=== PATIENT | female | born 1935 | race Caucasian/White ===

== ENCOUNTER 2020-07-06 14:26 | Outpatient (REF) | payer MEDICARE, SELFPAY ==
--- NOTE | ~2020-07-06 | XR_ITS ---
EXAMINATION: XR CHEST CLINICAL INFORMATION: Dyspnea COMPARISON: None TECHNIQUE: 2 views of the chest were obtained. FINDINGS: The cardiac and mediastinal contours are normal. The lungs are clear. There is no pleural effusion or pneumothorax. There are degenerative changes of the spine. XR/XR chest 2V IMPRESSION: Unremarkable examination.
[2020-07-06 15:47] LABS: MANUAL DIFF FLAG NO
[2020-07-06 15:51] LABS: Basophils Percent Auto 0.5 % (0-2); Eosinophils Absolute Auto 0.3 X10*3/uL (0.0-0.4); Eosinophils Percent Auto 3.4 % (0-4); Hematocrit 43.2 % (37-47); Hemoglobin 14.9 g/dl (12.0-16.0); Imm Gran Abs Auto 0.05 X10*3/uL (0.00-0.03); Imm Gran Pct Auto 0.6 % (0.0-0.4); Lymphocytes Absolute Auto 2.1 X10*3/uL (1.2-4.9); Lymphocytes Percent Auto 24.4 % (20-40); Mean Corpuscular HGB Conc 34.5 g/dl (31.0-35.0); Mean Corpuscular Hemoglobin 31.8 pg (27.0-33.0); Mean Corpuscular Volume 92.3 fL (80-98); Mean Platelet Volume 9.3 fL (9.4-12.3); Monocytes Absolute Auto 0.5 X10*3/uL (0.1-1.2); Monocytes Percent Auto 6.1 % (2-11); Neutrophils Absolute Auto 5.5 X10*3/uL (2.0-8.3); Platelet Count 259 X10*3/uL (160-400); Red Blood Count 4.68 X10*6/uL (4.20-5.50); Red Cell Distribution Width 12.9 % (11.0-16.0); White Blood Count 8.5 X10*3/uL (4.8-10.8)
== END 2020-07-06 14:27 | disposition home or self-care (01) ==
LOC: HO.LAB 14:26
PROVIDERS: PCP Internal Medicine; Visit Provider Internal Medicine Pulmonary Disease
DX: R06.00 Dyspnea, unspecified (principal); J44.9 Chronic obstructive pulmonary disease, unspecified; Z79.899 Other long term (current) drug therapy; Z87.891 Personal history of nicotine dependence
CPT/HCPCS: 36415; 71046; 85025; 99202; 99212

== ENCOUNTER 2020-08-02 15:00 | Outpatient (REF) | payer MEDICARE, SELFPAY ==
--- NOTE | 2020-08-02 16:21 | PFT_ITS ---
INDICATION: Dyspnea. SPIROMETRY: The FEV1 to FVC 80% with an FEV1 of 1.94 L, which is 111% predicted and an FVC of 2.44 L, which is 102% predicted. No significant response to bronchodilators noted. Maximum voluntary ventilation 111% predicted. LUNG VOLUMES: Total lung capacity 99% predicted. DIFFUSION CAPACITY: DLCO 60% predicted. COMPARISONS: None available. INTERPRETATION: No obstructive nor restrictive ventilatory defects identified. No significant response to bronchodilators noted. Normal maximum voluntary ventilation. Normal lung volumes. The patient however has an isolated moderate diffusion impairment. Therefore, occult interstitial lung conditions and/or pulmonary vascular condition should be considered. Clinical correlation warranted. MD SHEILA Aragon/CHANTEL / [phone]
== END 2020-08-02 15:01 | disposition home or self-care (01) ==
LOC: HO.RESP 15:00
PROVIDERS: Visit Provider Internal Medicine Pulmonary Disease
DX: R06.00 Dyspnea, unspecified (principal)
CPT/HCPCS: 94060; 94727; 94729; 99212

== ENCOUNTER → 2020-08-17 13:49 | Outpatient (REF) | payer MEDICARE, SELFPAY ==
--- NOTE | 2020-08-17 13:55 | CA_ITS ---
Transthoracic Echocardiogram Patient (Last, First, Middle): Tawana Alarcon, Gender: Female Date of : 1935 Age: 85 Procedure Date: 08/17/2020 Procedure Type: Transthoracic Echocardiogram Location: OP Height: 160.02 cm Weight: 78.93 kg BSA: 1.82 m2 Heart Rate: bpm BP: 174 / 71 mmHg Tool Lathe Operator: ANDREW Avila MD: Arash Merritt MD Crm Administrator: Dakota Rivas MD Symptoms: R06.00 - Dyspnea, unspecified Study Quality: Good ECG Rhythm: Sinus Conclusions: - 1. Normal LV systolic function with impaired relaxation filling pattern 2. Normal cardiac valvular Doppler 3. Normal RV systolic pressure 4. No pericardial effusion Findings Left Ventricle Normal left ventricular size, thickness, and systolic function. The visually estimated ejection fraction is between 60-65%. Spectral Doppler is indicative of an impaired relaxation filling pattern. E/E prime ratio is between 8 and 15 consistent with indeterminate filling pressures. Right Ventricle Normal right ventricular cavity size and systolic function. Atria The left atrium is normal in size. There is lipomatous hypertrophy of the interatrial septum. There is no evidence of interatrial shunt. The right atrium is normal in size. Aortic Valve The aortic valve was not well visualized. There is mild calcification of the aortic valve. There is no aortic valve stenosis. There is no aortic valve regurgitation. Mitral Valve There is mild anterior and moderate posterior mitral leaflet thickening. There is moderate mitral annular calcification. There is trace mitral valve regurgitation. There is no mitral valve stenosis. Pulmonic Valve The pulmonic valve is likely normal. There is trace pulmonic valve regurgitation. Tricuspid Valve Normal tricuspid valve structure. There is mild tricuspid valve regurgitation. The right ventricular systolic pressure is normal. The right ventricular systolic pressure is 32 mmHg. Normal right atrial pressure. There is no evidence of pulmonary hypertension. Great Vessels All visible segments of the aorta are normal in size. The pulmonary artery was not well visualized. Venous The inferior vena cava is normal in size and collapses greater than 50% with inspiration. Pericardium/Pleural There is no evidence of pericardial effusion. Prior Study Comparison No prior study available for comparison. Measurements M-Mode Liner Measurements Normals - Women/Men AOV Cusps: 1.30 1.5-2.6 cm/m2 2D Linear Measurements IVSd: 0.94 0.6-0.9/0.6-1.0 cm LVIDd: 5.19 3.9-5.3/4.2-5.9 cm LVIDd Index: 2.85 2.4-3.2/2.2-3.1 cm/m2 LVIDs: 2.72 2.0-3.6 cm LVPWd: 0.94 0.7-1.1 cm Ao Root: 3.00 2.1-3.5 cm LA Diam: 3.40 2.7-3.8/3.0-4.0 cm LAIDs Index: 1.87 1.5-2.3 cm/m2 LV Mass: 221.52 67-162/88-224 g LV Mass Index: 121.71 43-95/49-115 g/m2 LVOT Diam: 1.90 3.0+(-)1.3 cm 2D Systolic Function EF 4C: 58.70 >55% EF 2C: 61.80 >55% EF BiP: 60.80 >55% Mitral Valve MV Pk E: 0.99 MV PK A: 1.08 MV Decel Time: 239.00 E/A: 0.90 E'Lateral: 7.62 E'Medial: 8.59 E/E' Med: 11.60 E/E' Lat: 13.00 PHT: 70.00 MVA PHT: 3.14 Decel [place]: 4.15 Aortic Valve AoV Pk Good: 1.49 AoV Pk Grad: 9.00 LVOT LVOT Pk Good: 0.89 LVOT Mn Good: 0.58 LVOT VTI: 0.23 LVOT Pk Grad: 3.00 LVOT Mn Grad: 2.00 LVOT Diam: 1.90 LVOT Area: 2.84 Diastolic Function MV Pk E: 0.99 MV Pk A: 1.08 E/A: 0.90 E'Medial: 8.59 E/E' Med: 11.60 E' Laterial: 7.62 E/E' Lat: 13.00 Tricuspid Valve TR Pk Good: 2.67 TR Pk Grad: 29.00 RA Press: 3.00 RVSP: 32.00 Great Vessels Aorta Ao Root-2D: 3.00 2.0-3.7 cm Ao Asc: 3.00 2.1-3.4 cm Pulmonary Valve PV Pk Good: 1.37 Peak PV Grad: 8.00 Updated in Other Vendor System with Status of Final Dakota Rivas MD electronically signed on 08/18/2020 2:42:59 PM with status of Final
== END ==
LOC: HO.CARD 13:49
PROVIDERS: Visit Provider Internal Medicine Pulmonary Disease
DX: R06.00 Dyspnea, unspecified (principal)
CPT/HCPCS: 93306

== ENCOUNTER → 2020-09-06 14:27 | Outpatient (BNVA) | payer MEDICARE, SELFPAY | PROVIDERS: PCP Internal Medicine; Visit Provider Internal Medicine Pulmonary Disease | DX: J44.9 Chronic obstructive pulmonary disease, unspecified (principal); R06.00 Dyspnea, unspecified | CPT/HCPCS: 99212 ==

== ENCOUNTER → 2020-12-05 14:52 | Outpatient (BNVA) | payer MEDICARE, SELFPAY | PROVIDERS: PCP Internal Medicine; Visit Provider Internal Medicine Pulmonary Disease | DX: J44.9 Chronic obstructive pulmonary disease, unspecified (principal); R06.00 Dyspnea, unspecified; Z87.891 Personal history of nicotine dependence | CPT/HCPCS: 99212 ==

== ENCOUNTER → 2021-03-12 15:59 | Outpatient (BNVA) | payer MEDICARE, SELFPAY | PROVIDERS: PCP Internal Medicine; Visit Provider Internal Medicine Pulmonary Disease | DX: J44.9 Chronic obstructive pulmonary disease, unspecified (principal) | CPT/HCPCS: 99212 ==

== ENCOUNTER → 2021-09-24 14:54 | Outpatient (BNVA) | payer MEDICARE, SELFPAY | PROVIDERS: PCP Internal Medicine; Visit Provider Internal Medicine Pulmonary Disease | DX: J44.9 Chronic obstructive pulmonary disease, unspecified (principal); R06.00 Dyspnea, unspecified; Z91.09 Other allergy status, other than to drugs and biological substances; Z79.899 Other long term (current) drug therapy | CPT/HCPCS: 99212 ==

== ENCOUNTER → 2022-01-27 15:35 | Outpatient (BNVA) | payer MEDICARE, SELFPAY | PROVIDERS: PCP Internal Medicine; Visit Provider Internal Medicine Pulmonary Disease | DX: J44.9 Chronic obstructive pulmonary disease, unspecified (principal); Z91.09 Other allergy status, other than to drugs and biological substances; Z87.891 Personal history of nicotine dependence; Z79.899 Other long term (current) drug therapy | CPT/HCPCS: 99212 ==

== ENCOUNTER → 2022-03-25 12:59 | Outpatient (BNVA) | payer MEDICARE, SELFPAY | PROVIDERS: PCP Internal Medicine; Visit Provider Internal Medicine Pulmonary Disease | DX: J44.9 Chronic obstructive pulmonary disease, unspecified (principal); Z91.09 Other allergy status, other than to drugs and biological substances | CPT/HCPCS: 99212 ==

== ENCOUNTER → 2022-08-05 14:43 | Outpatient (BNVA) | payer MEDICARE, SELFPAY | PROVIDERS: PCP Internal Medicine; Visit Provider Internal Medicine Pulmonary Disease | DX: J44.9 Chronic obstructive pulmonary disease, unspecified (principal); J30.9 Allergic rhinitis, unspecified; R06.00 Dyspnea, unspecified | CPT/HCPCS: 99212 ==

== ENCOUNTER 2023-02-13 15:28 | Outpatient (AMB) | payer MEDICARE, SELFPAY ==
[2023-02-13 15:29] VITALS: BP 128/62; PULSE 59; O2SAT 96; BMI 29.5
--- NOTE | 2023-02-13 15:29 | A.OFFVIS_ITS ---
Intake Vital Signs 02/13/23 15:29 Height 5 ft 3 in Weight 166 lb 7.184 oz BMI 29.5 BP 128/62 Blood Pressure Location Rt brachial Position Sitting Pulse 59 Pulse Source Doppler Pulse Oximetry (%) 96 Oxygen Delivery Method Room Air Intake Visit Reasons: COPD Allergies No Known Allergies Allergy (Verified 02/13/23 15:35) HPI COPD HPI Details 87-year-old lady, former 15 pack-year sm oker, quit over 50 years prior now followed for asthma/COPD overlap syndrome. ?She continues to use Symbicort to control her underlying dyspnea.? Her lower extremity edema is well controlled on furosemide 20 mg daily that she takes as needed.? Her Flonase was switched to nasal ipratropium and now her allergic rhinitis is much better control. She denies recent exacerbations. Review of Systems Const Denies daytime sleepiness, Denies excessive sweating, Denies fatigue, Denies fever(s), Denies lethargy, Denies malaise, Denies night sweats, Denies snoring and Denies weight loss Eyes Denies blurry vision and Denies itchy eyes ENT Denies nasal congestion, Denies post nasal drip, Denies sinus pain, Denies sinus pressure and Denies other ( Thrush) Card Denies chest pain, Denies pedal edema, Denies dyspnea, Denies orthopnea and Denies paroxysmal nocturnal dyspnea Resp Denies cough, Denies hemoptysis, Denies excessive phlegm production, Denies dyspnea, Denies snoring and Denies wheezing GI Denies abdominal pain and Denies heartburn Musc Denies myalgias, Denies arthralgias and Denies joint swelling Skin/Breast Denies rash Neuro Denies memory loss and Denies seizure-like activity Psych Denies abnormal sleep pattern, Denies anxiety and Denies memory loss Endo Denies excessive sweating, Denies fatigue and Denies heat intolerance Alcides/Lymph Denies easy bruising Aller/Immun Denies itchy eyes, Denies seasonal rhinorrhea and Denies wheezing Physical Exam Vital Signs: Last Vital Signs Pulse 59 02/13/23 15:29 BP 128/62 02/13/23 15:29 Pulse Ox 96 02/13/23 15:29 Oxygen Delivery Method Room Air 02/13/23 15:29 BMI result Body Mass Index 29.5 Const General: no acute distress and alert Nutritional Appearance: not obese Orientation/consciousness: Other orientation findings ( oriented) HEENT Head: Yes atraumatic Eyes General: appearance normal, both eyes and all related structures Sclerae: sclerae normal EOM: EOMs intact bilaterally Neck Neck: Yes supple Lymphatic: no lymphadenopathy noted Resp Effort & Inspection: normal respiratory effort and no use of accessory muscles Auscultation: clear to auscultation bilaterally Cardio Rate: regular rate Rhythm: regular rhythm Heart sounds: no gallops, no murmurs and no rubs Skin General skin exam: other ( warm) Extrem General: No clubbing, No cyanosis and Yes edema (Trace bilateral) Assessment & Plan Assessment & Plan (1) Asthma-COPD overlap syndrome: Code(s): J44.9 - Chronic obstructive pulmonary disease, unspecified Plan: Well controlled on Symbicort, duo nebs, and albuterol MDI. Continue current regimen. (2) Allergic rhinitis: Code(s): J30.9 - Allergic rhinitis, unspecified Plan: Significantly improved control on nasal ipratropium. Continue current regimen. (3) Dyspnea on exertion: Code(s): R06.00 - Dyspnea, unspecified Plan: Lower extremity edema/dyspnea on exertion with reasonable control on Lasix 20 mg daily. Continue current regimen. Coding Level of Care Code Est Pt Level 4 (97089) Diagnoses Asthma-COPD overlap syndrome J44.9 Allergic rhinitis J30.9 Dyspnea on exertion R06.00
== END 2023-02-13 15:47 | disposition home or self-care (01) ==
PROVIDERS: PCP Internal Medicine; Visit Provider Internal Medicine Pulmonary Disease
DX: J44.9 Chronic obstructive pulmonary disease, unspecified (principal); J30.9 Allergic rhinitis, unspecified; R06.00 Dyspnea, unspecified
CPT/HCPCS: 99214

== ENCOUNTER → 2023-02-13 15:28 | Outpatient (BNVA) | payer MEDICARE, SELFPAY | PROVIDERS: PCP Internal Medicine; Visit Provider Internal Medicine Pulmonary Disease | DX: J44.9 Chronic obstructive pulmonary disease, unspecified (principal); J30.9 Allergic rhinitis, unspecified; R06.00 Dyspnea, unspecified; Z79.899 Other long term (current) drug therapy | CPT/HCPCS: 99212 ==

== ENCOUNTER 2023-08-11 15:13 | Outpatient (AMB) | payer MEDICARE, SELFPAY ==
[2023-08-11 15:17] VITALS: BP 122/64; PULSE 66; O2SAT 95; BMI 29.9
--- NOTE | 2023-08-11 15:17 | A.OFFVIS_ITS ---
Intake Vital Signs 08/11/23 15:17 Height 5 ft 3 in Weight 169 lb BMI 29.9 BP 122/64 Blood Pressure Location Rt brachial Position Sitting Pulse 66 Pulse Source Doppler Pulse Oximetry (%) 95 Oxygen Delivery Method Room Air Intake Visit Reasons: COPD Allergies No Known Allergies Allergy (Verified 08/11/23 15:27) HPI COPD HPI Details 88-year-old lady, former 15 pack-year sm bryan, quit over 50 years prior now followed for asthma/COPD overlap syndrome. ?She continues to use Symbicort to control her underlying dyspnea.? Her lower extremity edema is well controlled on furosemide 20 mg daily that she takes as needed.? Her allergic rhinitis as well controlled on nasal ipratropium. She denies recent exacerbations. Review of Systems Const Denies daytime sleepiness, Denies excessive sweating, Denies fatigue, Denies fever(s), Denies lethargy, Denies malaise, Denies night sweats, Denies snoring and Denies weight loss Eyes Denies blurry vision and Denies itchy eyes ENT Denies nasal congestion, Denies post nasal drip, Denies sinus pain, Denies sinus pressure and Denies other ( Thrush) Card Denies chest pain, Denies pedal edema, Denies dyspnea, Denies orthopnea and Denies paroxysmal nocturnal dyspnea Resp Denies cough, Denies hemoptysis, Denies excessive phlegm production, Denies dyspnea, Denies snoring and Denies wheezing GI Denies abdominal pain and Denies heartburn Musc Denies myalgias, Denies arthralgias and Denies joint swelling Skin/Breast Denies rash Neuro Denies memory loss and Denies seizure-like activity Psych Denies abnormal sleep pattern, Denies anxiety and Denies memory loss Endo Denies excessive sweating, Denies fatigue and Denies heat intolerance Alcides/Lymph Denies easy bruising Aller/Immun Denies itchy eyes, Denies seasonal rhinorrhea and Denies wheezing Physical Exam Vital Signs: Last Vital Signs Pulse 66 08/11/23 15:17 BP 122/64 08/11/23 15:17 Pulse Ox 95 08/11/23 15:17 Oxygen Delivery Method Room Air 08/11/23 15:17 BMI result Body Mass Index 29.9 Const General: no acute distress and alert Nutritional Appearance: not obese Orientation/consciousness: Other orientation findings ( oriented) HEENT Head: Yes atraumatic Eyes General: appearance normal, both eyes and all related structures Sclerae: sclerae normal EOM: EOMs intact bilaterally Neck Neck: Yes supple Lymphatic: no lymphadenopathy noted Resp Effort & Inspection: normal respiratory effort and no use of accessory muscles Auscultation: clear to auscultation bilaterally Cardio Rate: regular rate Rhythm: regular rhythm Heart sounds: no gallops, no murmurs and no rubs Skin General skin exam: other ( warm) Extrem General: No clubbing, No cyanosis and No edema Assessment & Plan Assessment & Plan (1) Asthma-COPD overlap syndrome: Code(s): J44.9 - Chronic obstructive pulmonary disease, unspecified Plan: Well controlled on Symbicort and albuterol MDI. Continue current regimen. (2) Allergic rhinitis: Code(s): J30.9 - Allergic rhinitis, unspecified Plan: Well controlled on nasal ipratropium. Continue nasal ipratropium. (3) Dyspnea on exertion: Code(s): R06.00 - Dyspnea, unspecified Plan: Lower extremity edema and dyspnea on exertion well controlled on Lasix 20 mg daily. Continue current regimen. Medications: Refilled ipratropium bromide administer into each nostril 2 sprays intranasal TID-QID PRN 15 mL 6RF allergy symptoms 30 days albuterol sulfate 90 mcg/actuation 2 puffs inhalation Q4-6H PRN 1 ea 3RF shortness of breath or wheezing 30 days budesonide-formoterol 160-4.5 mcg/actuation 2 puffs PO BID 33 grams 6RF Coding Level of Care Code Est Pt Level 4 (97434) Diagnoses Asthma-COPD overlap syndrome J44.9 Allergic rhinitis J30.9 Dyspnea on exertion R06.00
== END 2023-08-11 15:49 | disposition home or self-care (01) ==
PROVIDERS: PCP Internal Medicine; Visit Provider Internal Medicine Pulmonary Disease
DX: J44.9 Chronic obstructive pulmonary disease, unspecified (principal); J30.9 Allergic rhinitis, unspecified; R06.00 Dyspnea, unspecified
CPT/HCPCS: 99214

== ENCOUNTER → 2023-08-11 15:13 | Outpatient (BNVA) | payer MEDICARE, SELFPAY | PROVIDERS: PCP Internal Medicine; Visit Provider Internal Medicine Pulmonary Disease | DX: J44.9 Chronic obstructive pulmonary disease, unspecified (principal); J30.9 Allergic rhinitis, unspecified; R06.00 Dyspnea, unspecified | CPT/HCPCS: 99212 ==

== ENCOUNTER 2024-02-24 14:44 | Outpatient (AMB) | payer MEDICARE, SELFPAY ==
[2024-02-24 14:47] VITALS: BP 118/58; PULSE 70; O2SAT 96; BMI 28.0
--- NOTE | 2024-02-24 14:47 | MHC.OFFVIS ---
Vital Signs 02/24/24 14:47 Height 5 ft 3 in Weight 158 lb BMI 28.0 BP 118/58 L Blood Pressure Location Rt brachial Position Sitting Pulse 70 Pulse Source Doppler Pulse Oximetry (%) 96 Oxygen Delivery Method Room Air Intake Visit Reasons: copd Allergies No Known Allergies Allergy (Verified 08/11/23 15:27) HPI HPI copd: Details: 88-year-old lady, former 15 pack-year smoker, quit over 50 years prior now followed for asthma/COPD overlap syndrome. ?She continues to use Symbicort to control her underlying dyspnea.? Her lower extremity edema is well controlled on furosemide 20 mg daily that she takes as needed.? Her allergic rhinitis as well controlled on nasal ipratropium. She denies recent exacerbations. Review of Systems Const Denies daytime sleepiness, Denies excessive sweating, Denies fatigue, Denies fever(s), Denies lethargy, Denies malaise, Denies night sweats, Denies snoring and Denies weight loss Eyes Denies blurry vision and Denies itchy eyes ENT Denies nasal congestion, Denies post nasal drip, Denies sinus pain, Denies sinus pressure and Denies other ( Thrush) Card Denies chest pain, Denies pedal edema, Denies dyspnea, Denies orthopnea and Denies paroxysmal nocturnal dyspnea Resp Denies cough, Denies hemoptysis, Denies excessive phlegm production, Denies dyspnea, Denies snoring and Denies wheezing GI Denies abdominal pain and Denies heartburn Musc Denies myalgias, Denies arthralgias and Denies joint swelling Skin/Breast Denies rash Neuro Denies memory loss and Denies seizure-like activity Psych Denies abnormal sleep pattern, Denies anxiety and Denies memory loss Endo Denies excessive sweating, Denies fatigue and Denies heat intolerance Alcides/Lymph Denies easy bruising Aller/Immun Denies itchy eyes, Denies seasonal rhinorrhea and Denies wheezing Physical Exam Vital Signs: Last Vital Signs Pulse 70 02/24/24 14:47 BP 118/58 L 02/24/24 14:47 Pulse Ox 96 02/24/24 14:47 Oxygen Delivery Method Room Air 02/24/24 14:47 BMI result Body Mass Index 28.0 Const General: no acute distress and alert Nutritional Appearance: not obese Orientation/consciousness: Other orientation findings ( oriented) HEENT Head: Yes atraumatic Eyes General: appearance normal, both eyes and all related structures Sclerae: sclerae normal EOM: EOMs intact bilaterally Neck Neck: Yes supple Lymphatic: no lymphadenopathy noted Resp Effort & Inspection: normal respiratory effort and no use of accessory muscles Auscultation: clear to auscultation bilaterally Cardio Rate: regular rate Rhythm: regular rhythm Heart sounds: no gallops, no murmurs and no rubs Skin General skin exam: other ( warm) Extrem General: No clubbing, No cyanosis and Yes edema ( Trace bilateral) Assessment & Plan Assessment & Plan (1) Asthma-COPD overlap syndrome: Code(s): J44.9 - Chronic obstructive pulmonary disease, unspecified Category: Medical Plan: well controlled on current regimen of Symbicort, duo nebs, and albuterol MDI. Continue current regimen. (2) Environmental allergies: Code(s): Z91.09 - Other allergy status, other than to drugs and biological substances Category: Medical Plan: Well controlled on Singulair and nasal ipratropium. Continue current regimen. (3) Dyspnea on exertion: Code(s): R06.00 - Dyspnea, unspecified Category: Medical Plan: Orthopnea and lower extremity edema with improved control on Lasix 20 mg daily when patient takes it. Patient has been encouraged to be more consistent with her diuretic. Coding Level of Care Code Est Pt Level 4 (31831) Diagnoses Asthma-COPD overlap syndrome J44.9 Environmental allergies Z91.09 Dyspnea on exertion R06.00
== END 2024-02-24 15:07 | disposition home or self-care (01) ==
PROVIDERS: PCP Internal Medicine; Visit Provider Internal Medicine Pulmonary Disease
DX: J44.9 Chronic obstructive pulmonary disease, unspecified (principal); Z91.09 Other allergy status, other than to drugs and biological substances; R06.00 Dyspnea, unspecified
CPT/HCPCS: 99214

== ENCOUNTER → 2024-02-24 14:44 | Outpatient (BNVA) | payer MEDICARE, SELFPAY | PROVIDERS: PCP Internal Medicine; Visit Provider Internal Medicine Pulmonary Disease | DX: J44.9 Chronic obstructive pulmonary disease, unspecified (principal); R06.00 Dyspnea, unspecified; Z91.09 Other allergy status, other than to drugs and biological substances | CPT/HCPCS: 99212 ==

== ENCOUNTER 2024-08-24 14:53 | Outpatient (AMB) | payer MEDICARE, SELFPAY ==
--- NOTE | 2024-08-24 15:01 | MHC.OFFVIS ---
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 ?She continues to use Symbicort, duo nebs, and albuterol MDI to control her underlying dyspnea.? Her lower extremity edema is well controlled on furosemide 20 mg daily that she takes as needed.? Her allergic rhinitis as well controlled on nasal ipratropium. She denies recent exacerbations. [facility] Social History (Updated 08/24/24 @ 15:08 by Ammy Conroy [facility]) Patient Tobacco Use Status: Former Tobacco user Review of Systems Const Denies daytime sleepiness, Denies excessive sweating, Denies fatigue, Denies fever(s), Denies lethargy, Denies malaise, Denies night sweats, Denies snoring and Denies weight loss Eyes Denies blurry vision and Denies itchy eyes ENT Denies nasal congestion, Denies post nasal drip, Denies sinus pain, Denies sinus pressure and Denies other ( Thrush) Card Denies chest pain, Denies pedal edema, Denies dyspnea, Denies orthopnea and Denies paroxysmal nocturnal dyspnea Resp Denies cough, Denies hemoptysis, Denies excessive phlegm production, Denies dyspnea, Denies snoring and Denies wheezing GI Denies abdominal pain and Denies heartburn Musc Denies myalgias, Denies arthralgias and Denies joint swelling Skin/Breast Denies rash Neuro Denies memory loss and Denies seizure-like activity Psych Denies abnormal sleep pattern, Denies anxiety and Denies memory loss Endo Denies excessive sweating, Denies fatigue and Denies heat intolerance Alcides/Lymph Denies easy bruising Aller/Immun Denies itchy eyes, Denies seasonal rhinorrhea and Denies wheezing Physical Exam Vital Signs: Last Vital Signs Pulse 65 08/24/24 15:02 BP 110/48 L 08/24/24 15:02 Pulse Ox 96 08/24/24 15:02 Oxygen Delivery Method Room Air 08/24/24 15:02 BMI result Body Mass Index 28.7 Const General: no acute distress and alert Nutritional Appearance: not obese Orientation/consciousness: Other orientation findings ( oriented) HEENT Head: Yes atraumatic Eyes General: appearance normal, both eyes and all related structures Sclerae: sclerae normal EOM: EOMs intact bilaterally Neck Neck: Yes supple Lymphatic: no lymphadenopathy noted Resp Effort & Inspection: normal respiratory effort and no use of accessory muscles Auscultation: clear to auscultation bilaterally Cardio Rate: regular rate Rhythm: regular rhythm Heart sounds: no gallops, no murmurs and no rubs Skin General skin exam: other ( warm) Extrem General: No clubbing, No cyanosis and No edema Assessment & Plan Assessment & Plan (1) Asthma-COPD overlap syndrome: Code(s): J44.9 - Chronic obstructive pulmonary disease, unspecified Category: Medical Plan: Well controlled on Symbicort, duo nebs, and albuterol MDI. Continue current regimen. (2) Allergic rhinitis: Code(s): J30.9 - Allergic rhinitis, unspecified Category: Medical Plan: Improved control on nasal ipratropium continue current regimen. (3) Dyspnea on exertion: Code(s): R06.00 - Dyspnea, unspecified Category: Medical Plan: Orthopnea/lower extremity edema with improved control on Lasix 20 mg daily as needed. Continue current regimen. 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 Will refer to Cardiology. Orders: Referrals Cardiology Referral I50.40 - Unspecified combined systolic (congestive) and diastolic (congestive) heart failure Medications: Refilled ipratropium bromide administer into each nostril 2 sprays intranasal TID-QID PRN 15 mL 6RF allergy symptoms 30 days Coding Level of Care Code Est Pt Level 4 (90415) Complex EM visit Add On G2211 Diagnoses Asthma-COPD overlap syndrome J44.9 Allergic rhinitis J30.9 Dyspnea on exertion R06.00 Combined systolic and diastolic heart failure I50.40
[2024-08-24 15:02] VITALS: BP 110/48; PULSE 65; O2SAT 96; BMI 28.7
--- OUTSIDE RECORDS SUMMARY | 2024-08-24 17:52 | XMS_ITS | Clinical Summary ---
Author Organization [facility] Facility Address [address] [address] Care Team Providers Care Field Irrigation Worker Name Role Phone Anya Velasquez MD Primary Care Provider [phone] Allergies Active Allergy Reactions Criticality Noted Date Comments Atorvastatin 06/12/2021 Simvastatin 07/20/2009 Medications albuterol HFA (ProAir HFA) 108 (90 Base) MCG/ACT inhaler every 4 (four) hours 9 Active amLODIPine (NORVASC) 5 MG tablet amlodipine 5 mg tablet 9 Active atorvastatin (LIPITOR) 40 MG tablet atorvastatin 40 mg tablet 9 Active cholecalcifero l (VITAMIN D-3 SUPER STRENGTH) 50 MCG (2000 UT) tablet Vitamin D3 50 mcg (2,000 unit) tablet Take by oral route. Active coenzyme Q-10 100 MG capsule Take by mouth A ctive Diclofenac Sodium 1 % gel Place 4 g on the skin 8 Active doxycycline (VIBRAMYCIN) 100 MG capsule 1 capsule 2 (two) times a day Active fluticasone-sa lmeterol (ADVAIR DISKUS) 250-50 MCG/DOSE diskus inhaler INHALE 1 PUFF BY MOUTH TWICE DAILY 1 Active furosemide (LASIX) 20 MG tablet furosemide 20 mg tablet 9 Active insulin glargine (Lantus SoloStar) 100 UNIT/ML injection Lantus Solostar U-100 Insulin 100 unit/mL (3 mL) subcutaneous pen Active metoprolol succinate XL (TOPROL-XL) 25 MG 24 hr tablet metoprolol succinate ER 25 mg tablet,extended release 24 hr 9 Active omega-3 (FISH OIL) 1000 MG capsule Take by mouth Active BIOTIN PO Take 1 tablet by mouth 1 (one) time each day Active aspirin (ST ONUR) 81 MG EC tablet Take 81 mg by mouth 1 (one) time each day Active MULTIPLE VITAMINS-RETAIL POS SPECIALIST ALS PO Take 1 tablet by mouth 1 (one) time each day Active montelukast (SINGULAIR) 10 MG tablet Take 10 mg by mouth every night Active budesonide-for moterol (SYMBICORT) 160-4.5 MCG/ACT inhaler Inhale 2 puffs 2 (two) times a day 1 Active levothyroxine (SYNTHROID, LEVOTHROID) 88 MCG tablet Take 88 mcg by mouth 1 (one) time each day 1 Active ketoconazole (NIZORAL) 2 % cream APPLY A THIN LAYER OF CREAM UNDER BREASTS NEEDED FOR FLARES FOR UP TO 2 WEEKS. MAY MIX WITH DESONIDE. 2 Active desonide (DESOWEN) 0.05 % cream APPLY CREAM TOPICALLY TO AFFECTED AREAS UNDER BREASTS AND BEHIND LEFT EAR TWICE DAILY FOR UP TO 14 DAYS AT A TIME. 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 Reports good consistency taking rx appropriately. Would monitor TFTs q6-12 months & prn symptoms of thyroid dysfunction or more than 10# weight change. Long-term current use of drug therapy 02/07/2023 Ankle joint pain 06/12/2021 Cervical radiculopathy 06/12/2021 Insomnia 06/12/2021 Toxic multinodular goiter 06/12/2021 Vitamin D deficiency 06/12/2021 Allergic conjunctivitis 12/21/2018 Allergic rhinitis 12/21/2018 Obese 12/21/2018 Seasonal allergy 12/21/2018 Stage 3 chronic kidney disease 01/01/2018 Osteopenia 01/01/2018 Spinal stenosis 01/01/2018 Arthritis 10/07/2017 Chronic bronchitis 10/07/2017 Asthma-chronic obstructive p ulmonary disease overlap syndrome 06/24/2017 Congestive heart failure 06/24/2017 Hypertension 06/24/2017 Hypothyroidism 06/24/2017 Overview (12/10/2022): S/p thyroidectomy S/p thyroidectomy S/p thyroidectomy S/p thyroidectomy S/p thyroidectomy Last Assessment & Plan: Patient is consistent with taking her levothyroxine. Her recent prescription was filled by her PCP. Labs ordered today to do prior to next visit to determine if any medication adjustments are needed Type 2 diabetes mellitus 06/24/2017 Overview (12/10/2022): Last Assessment & Plan: Foot exam preformed and documented by Dr Blanca Estrada MD. Shoe prescription printed and given to the patient at the of the visit Last Assessment & Plan: Control is good based upon the patient's limited SMBG readings and her recent A1C of 7.2%. No frequent or severe hypoglycemia. Will maintain her regimen. Continue to work on eating healthy and being active. To call with any issues managing her glucose levels. Up to date with ophtho. Foot and nail care good. Foot exam today preformed and documented by Dr Blanca Estrada MD. Labs ordered today to be done prior to next visit Atherosclerosis of aorta 01/01/2017 Hyperlipidemia 09/25/2016 Encounters Date Type Department Care Team Description 06/24/2024 Orders Only [facility] [address] [place] [id number] Adolfo Caraballo MD Stage 3 chronic kidney disease, not otherwise specified (HCC) from Last 3 Months Immunizations Name Administration Dates Next Due Influenza Whole 02/08/2020 Influenza, Unspecified 03/21/2019 Pneumococcal Polysaccharide 03/07/2015 Tdap 04/13/2012 Zoster 07/15/2019,10/13/2018 Family History Medical History Relation Comments Diabetes Father Cancer Mother Relation Status Comments Father Mother Social History Tobacco Use Types Packs/Day Years Used Date Smoking Tobacco: Former Cigarettes Smokeless Tobacco: Never Tobacco Cessation:Counseling Given: No Alcohol Use Standard Drinks/Week Comments Never 0 (1 standard drink = 0.6 oz pur e alcohol) Comments Unknown Sex and Gender Information Value Date Recorded Sex Assigned at Not on file Legal Sex Female 6:27 PM EST Gender Identity Not on file Sexual Orientation Not on file Last Filed Vital Signs Vital Sign Reading Time Taken Comments Blood Pressure 125/63 06/24/2023 3:20 PM EST Pulse 70 06/24/2023 3:20 PM EST Temperature - - Respiratory Rate - - Oxygen Saturation 96% 06/12/2021 3:10 PM EST Inhaled Oxygen Concentration - - Weight 76.2 kg (168 lb) 06/24/2023 3:20 PM EST Height 160 cm (5' 3 ) 12/12/2020 3:48 PM EDT Body Mass Index 29.76 12/12/2020 3:48 PM EDT Plan of Treatment Upcoming Encounters Date Type Department Care Team (Late st Contact Info) Description 08/31/2024 3:45 PM EDT Office Visit [facility] [address] [place] [id number] Adolfo Caraballo MD [address] [phone] Health Maintenance Due Date Last Done Comments Pneumococcal Vaccine: 65+ Years (2 of 2 - PCV) 03/07/2016 03/07/2015 Diabetes: Hemoglobin A1C 09/18/2020 Diabetes: Ophthalmology Exam 09/18/2020 Diabetes: Pedal Pulse Checked 09/18/2020 Diabetes: Sensory Foot Exam 09/18/2020 Diabetes: Visual Foot Exam 09/18/2020 Influenza Vaccine (#1) 2024 0, 03/21/2019 Hepatitis B Vaccine Aged Out No longe r eligible based on patient's age to complete this topic Insurance [employer] Care Teams Field Irrigation Worker Relationship Specialty Start Date End Date Anya Velasquez MD [address] [place] [address] PCP - General Internal Medicine 08/01/20
== END 2024-08-24 15:27 | disposition home or self-care (01) ==
LOC: HO.HPS 14:54
PROVIDERS: PCP Internal Medicine; Visit Provider Internal Medicine Pulmonary Disease
DX: J44.9 Chronic obstructive pulmonary disease, unspecified (principal); J30.9 Allergic rhinitis, unspecified; R06.00 Dyspnea, unspecified; I50.40 Unspecified combined systolic (congestive) and diastolic (congestive) heart failure
CPT/HCPCS: 99214; G2211

== ENCOUNTER → 2024-08-24 14:53 | Outpatient (BNVA) | payer MEDICARE, SELFPAY | PROVIDERS: PCP Internal Medicine; Visit Provider Internal Medicine Pulmonary Disease | DX: J44.9 Chronic obstructive pulmonary disease, unspecified (principal); J30.9 Allergic rhinitis, unspecified; R06.00 Dyspnea, unspecified; I50.40 Unspecified combined systolic (congestive) and diastolic (congestive) heart failure | CPT/HCPCS: 99212 ==